=== PATIENT | female | born 1995 | race Caucasian/White ===

== ENCOUNTER 2022-07-10 13:56 | Emergency (ER) | payer OTHER, SELFPAY ==
[2022-07-10 14:03] VITALS: BP 129/67; PULSE 123; RESP 18; TEMP 37; O2SAT 99
--- NOTE | 2022-07-10 14:18 | ED.BACK ---
HPI - Back Pain/Injury General Chief Complaint: Back Pain/Injury Stated Complaint: lower Back pain Time Seen by Provider: 07/10/22 14:18 Source: patient, RN notes reviewed and old records reviewed Mode of arrival: ambulatory Limitations: no limitations History of Present Illness HPI Narrative: 26 year old female who presents to [facility] care with complaints of lower back pain which started yesterday when she was bending over to put 5 month old infant in a bouncer. Patient reports that she had sharp pain in her lower back at that time that has persisted which is aggravated by any movement. Patient reports that she has had previous episode of back pain of similar symptoms and area of pain. Patient reports that she has some tingling and numbness that go to her thighs at times. Patient reports that she has no bowel or bladder difficulty. Patient reports that her pain is along middle of lower back with no radiation of the pain into buttock or down legs. patient is and had some Flexeril from her previous episode of back pain and she did pump after taking the medication and supplemented infant with formula. MD elicited complaint: back pain Pertinent past history: prior back pain Onset (ago): day(s) Pain scale (0-10): 6 Quality: sharp Exacerbating factors: movement Work related injury: No Related Data Home Medications Medication Instructions Recorded Confirmed bupropion HCl 150 mg 24 hr tablet, 150 mg PO DAILY 07/10/22 07/10/22 extended release Allergies Allergy/AdvReac Type Severity Reaction Status Date / Time No Known Allergies Allergy Verified 07/10/22 14:15 Review of Systems Review of Systems: CONSTITUTIONAL: Denies fever, chills, or sweats. CARDIOVASCULAR: Denies chest pain, palpitations, or edema. RESPIRATORY: Denies cough or dyspnea. GASTROINTESTINAL: Denies abdominal pain, nausea, vomiting, or diarrhea. GENITOURINARY: Denies dysuria or hematuria. SKIN: Denies rash or itching. MUSCULOSKELETAL: Reports back pain lower mid back area Joint pain or myalgia. NEUROLOGIC: Denies headache, numbness, or weakness. All systems reviewed & are unremarkable except as noted in HPI and below PMFSH Past Medical History Medical History (Updated 07/10/22 @ 15:34 by Mayda England NP) Back pain Comments At time of signature, agree with nursing past medical, surgical, social and family history. There is no relevant family history pertinent to the presenting complaint Exam Narrative: GENERAL: Well-appearing, well-nourished, and in no acute distress. HEAD: Normocephalic, atraumatic. EYES: PERRLA and EOMI. NECK: Supple. No lymphadenopathy. CHEST: Clear to auscultation. No respiratory distress. SAO2 99% on room air HEART: Regular rate and rhythm. Distal pulses palpable and equal, cap refill <3 seconds ABDOMEN: Soft, nontender, nondistended, normal active bowel sounds, no palpable or pulsatile masses. No CVA tenderness MUSCULOSKELETAL: Normal range of motion and strength in all extremities; 5/5 strength with hip flexion and extension, dorsiflexion and extension, knee flexion and extension, plantar flexion and extension. Normal sensation in dermatomal distributions with sensitivity to light touch and pain. lower back midline back tenderness to palpation. No paraspinal tenderness. Transfers from lying to sitting to standing slowly and guarded with movement. SKIN: Warm, dry, no rash. No ecchymosis, erythema, open wounds to back. NEURO: No focal deficits. Alert and oriented x3. Reflexes intact. gait slow and deliberate PSYCH: Normal mood and affect Course Course Emergency Course: Patient is aware of diagnosis, understands and agrees to treatment plan. Anticipatory guidance given. Patient agrees to follow-up as directed and is aware of reasons to seek care at the emergency department. Portions of this record may have been created with voice recognition software Level of Care: Express Care Vi
== END 2022-07-10 14:40 | disposition home or self-care (01) ==
PROVIDERS: Emergency Provider Registered Nurse
DX: S39.012A Strain of muscle, fascia and tendon of lower back, initial encounter (principal); X50.9XXA Other and unspecified overexertion or strenuous movements or postures, initial encounter
CPT/HCPCS: 99213; G0463

== ENCOUNTER 2022-12-21 18:08 | Emergency (ER) | payer OTHER, SELFPAY ==
--- NOTE | ~2022-12-21 | XR_ITS ---
EXAMINATION: XR chest 2V Exam Date/Time: 12/21/2022 19:03 CDT HISTORY: COUGH X 12 DAYS. Comparison: None. RESULT: Lines, tubes, and devices: Cholecystectomy clips. Lungs and pleura: Clear. Cardiomediastinal silhouette: Normal. Other: No acute osseous or upper abdominal finding. IMPRESSION: No acute cardiopulmonary process. Reviewed, dictated and finalized at location K.
[2022-12-21 18:20] VITALS: BP 113/71; PULSE 87; RESP 20; TEMP 36.9; O2SAT 100
--- NOTE | 2022-12-21 18:45 | ED.URI ---
HPI - URI/Sore Throat General Chief Complaint: Upper Respiratory Infection Stated Complaint: Cough Source: patient and RN notes reviewed History of Present Illness HPI Narrative: 27 yo F presents to urgent care with complaints of cough x 12 days. Pt reports SOB with exertion. Reports a dry throat. Denies any chest pain, fevers, chills, or vomiting. Pt has been taking Mucinex and Dayquil at home. Related Data Home Medications Medication Instructions Recorded Confirmed semaglutide (weight loss) 1.7 1.7 mg subcut WEEKLY 12/21/22 12/21/22 mg/0.75 mL subcutaneous pen injector (Wegovy) Allergies Allergy/AdvReac Type Severity Reaction Status Date / Time No Known Allergies Allergy Verified 12/21/22 18:35 Review of Systems Review of Systems: CONSTITUTIONAL: Denies fever, chills, or sweats. EYES: Denies visual changes, redness, or discharge. ENT: Denies otalgia and sore throat CARDIOVASCULAR: Denies chest pain, palpitations, or edema. RESPIRATORY: + cough or dyspnea. GASTROINTESTINAL: Denies abdominal pain, nausea, vomiting, or diarrhea. GENITOURINARY: Denies dysuria or hematuria. SKIN: Denies rash or itching. MUSCULOSKELETAL: Denies back pain, joint pain, or myalgia. NEUROLOGIC: Denies headache, numbness, or weakness. Pertinent positives per HPI. PENDING SALE TO [facility] Past Medical History Medical History (Updated 12/21/22 @ 19:31 by Nupur Damian, BANANA ROOM CUTTER) Back pain Comments At the time of my signature, I reviewed and agree with the nursing past medical, surgical, social, and family history. There is no relevant family history pertinent to the patient complaint. Exam Narrative: GENERAL: This is a well-nourished, well-developed patient, in no apparent distress. HEAD: normocephalic, atraumatic. EYES: Sclera clear/white. Vision is grossly intact. EARS: External ears normal, auditory canals clear and without drainage, TMs normal without perforation. Hearing grossly intact. NOSE: External nose normal with no obvious nasal discharge, nares without redness, no rhinorrhea. THROAT: Mucous membranes moist, posterior pharynx clear. NECK: Neck supple, non-tender without lymphadenopathy, masses or thyromegaly. CARDIOVASCULAR: Regular rate and rhythm without murmurs, gallops, or rubs. RESPIRATORY: Rhonchi and slight wheezes heard on auscultation in lower bases SKIN: warm, intact with no suspicious lesions or rash, good texture and turgor. NEURO: awake, alert, and oriented to person, place and time. There were no obvious focal neurologic abnormalities. Course Course Level of Care: Express Care Visit Vital Signs Vital signs: Vital Signs Temperature 98.5 F 12/21/22 18:20 Pulse Rate 87 12/21/22 18:20 Respiratory Rate 20 12/21/22 18:20 Blood Pressure 113/71 12/21/22 18:20 Pulse Oximetry 100 12/21/22 18:20 Oxygen Delivery Room Air 12/21/22 18:20 Temperature 98.5 F 12/21/22 18:20 Pulse Rate 87 12/21/22 18:20 Respiratory Rate 20 12/21/22 18:20 Blood Pressure 113/71 12/21/22 18:20 Pulse Oximetry 100 12/21/22 18:20 Oxygen Delivery Room Air 12/21/22 18:20 At the time of my signature, I reviewed and agree with the nursing past medical, surgical, social, and family history. There is no relevant family history pertinent to the patient complaint. MDM - URI/Sore Throat MDM Narrative Medical decision making narrative: Take steroids as directed. May use the inhaler every 4-6 hours as needed for coughing. Increase fluids at home. Avoid any and all smoke. May use a humidifier in the bedroom. Increase your Vitamin C. Follow-up with personal physician in 2-5 days. Differential Diagnosis Differential diagnosis: Likely upper respiratory infection, sinusitis, viral infection and bronchitis Imaging Data Radiologist's impression: [facility] [address] [place] [address] XRay Report Signed Patient: Trisha Kramer :
== END 2022-12-21 19:35 | disposition home or self-care (01) ==
PROVIDERS: Emergency Provider Nurse Practitioner Family
DX: J40 Bronchitis, not specified as acute or chronic (principal)
CPT/HCPCS: 71046; 99213; G0463

== ENCOUNTER 2023-01-08 08:24 | Emergency (ER) | payer OTHER, SELFPAY ==
[2023-01-08 08:31] VITALS: BP 119/84; PULSE 103; RESP 16; TEMP 36.6; O2SAT 98
[2023-01-08 08:34] VITALS: BP 119/84; PULSE 103; RESP 16; TEMP 36.6; O2SAT 98
--- NOTE | 2023-01-08 08:45 | ED.URI ---
HPI - URI/Sore Throat General Chief Complaint: Upper Respiratory Infection Stated Complaint: Cough and Congestion Source: patient and RN notes reviewed History of Present Illness HPI Narrative: 27 yo F presents to urgent care with complaints of congestion, sinus pressure, and frontal GEIGER x 1 week. Pt has had a cough for several weeks and was seen here 2 weeks ago and dx with bronchitis. Pt had a negative CXR at that time and prescribed Albuterol and prednisone. Pt states her cough is still lingering but her biggest issue today is her congestion. Denies any fevers, chills, chest pain, N/V/D, ear pain, or sore throat. Pt is taking OTC medications without relief. Related Data Home Medications Medication Instructions Recorded Confirmed semaglutide (weight loss) 1.7 1.7 mg subcut WEEKLY 12/21/22 12/21/22 mg/0.75 mL subcutaneous pen injector (Wegovy) Allergies Allergy/AdvReac Type Severity Reaction Status Date / Time No Known Allergies Allergy Verified 12/21/22 18:35 Review of Systems Review of Systems: Pertinent positives and pertinent negatives per HPI. [facility] Past Medical History Medical History (Updated 01/08/23 @ 08:45 by Nupur Damian, RENT AND MISCELLANEOUS REMITTANCE CLERK) Back pain Comments At the time of my signature, I reviewed and agree with the nursing past medical, surgical, social, and family history. There is no relevant family history pertinent to the patient complaint. Exam Narrative: GENERAL: This is a well-nourished, well-developed patient, in no apparent distress. HEAD: normocephalic, atraumatic. EYES: Sclera clear/white. Vision is grossly intact. EARS: External ears normal, auditory canals clear and without drainage, TMs normal without perforation. Hearing grossly intact. NOSE: External nose normal with no obvious nasal discharge, nares without redness, no rhinorrhea. + congestion THROAT: Mucous membranes moist, posterior pharynx clear. NECK: Neck supple, non-tender without lymphadenopathy, masses or thyromegaly. CARDIOVASCULAR: Regular rate and rhythm without murmurs, gallops, or rubs. RESPIRATORY: Clear to auscultation. Breath sounds equal bilaterally. No wheezes, rales, or rhonchi. SKIN: warm, intact with no suspicious lesions or rash, good texture and turgor. NEURO: awake, alert, and oriented to person, place and time. There were no obvious focal neurologic abnormalities. Course Course Level of Care: Express Care Visit Vital Signs Vital signs: Vital Signs Temperature 98 F 01/08/23 08:31 Pulse Rate 103 H 01/08/23 08:31 Respiratory Rate 16 01/08/23 08:31 Blood Pressure 119/84 01/08/23 08:31 Pulse Oximetry 98 01/08/23 08:31 Oxygen Delivery Room Air 01/08/23 08:31 Temperature 97.4 F L 01/08/23 08:38 Pulse Rate 70 01/08/23 08:38 Respiratory Rate 20 01/08/23 08:38 Blood Pressure 104/49 L 01/08/23 08:38 Pulse Oximetry 98 01/08/23 08:38 Oxygen Delivery Room Air 01/08/23 08:38 Reviewed MDM - URI/Sore Throat MDM Narrative Medical decision making narrative: Go to the ER for any new or worsening symptoms. Avoid smoking/second-hand smoke. Continue to take Tylenol or Motrin for pain. Increase your Vitamin C intake. Use a humidifier or vaporizer at night. Take a probiotic daily while taking the antibiotic Take Medications as prescribed. Drink plenty of water. 8-10 glasses per day. Use flonase 2 times per day for 5 days then as needed Take mucinex 2 times per day and be sure to take with 8oz of water. Follow up with Primary provider if not getting better. Differential Diagnosis Differential diagnosis: Likely upper respiratory infection, sinusitis, viral infection and bronchitis Critical Care Time Critical Care Time Critical Care Time: No Discharge Plan Discharge Clinical Impression: Sinusitis Qualifiers: Sinusitis location: unspecified location Chronicity: acute Recurrence: not specified as recurrent Qualified Code(s): J01.90 - Acute sinusitis, u
== END 2023-01-08 08:51 | disposition home or self-care (01) ==
PROVIDERS: Emergency Provider Nurse Practitioner Family
DX: J01.90 Acute sinusitis, unspecified (principal)
CPT/HCPCS: 99213; G0463

== ENCOUNTER 2024-07-31 08:15 | Emergency (ER) | payer OTHER, SELFPAY ==
[2024-07-31 08:20] VITALS: BP 98/61; PULSE 92; RESP 14; TEMP 36.5; O2SAT 100
--- OUTSIDE RECORDS SUMMARY | 2024-07-31 08:20 | XMS_ITS | Encounter Summary ---
Author Organization [facility] Address [address] [place] [address] Care Team Providers Care Cone Worker Name Role Phone Mariah Eaton MD Primary Care Provider [phone] Encounter Details Date Type Department Care Team (Late st Contact Info) Description 04/14/2018 Lab Requisition [facility] [address] [place] [address] [place] [id number] [facility] [address] [place] [address] Encounter for pre-employment examination Social History Tobacco Use Types Packs/Day Years Used Date Smoking Tobacco: Never Assessed Comments Unknown Sex and Gender Information Value Date Recorded Sex Assigned at Not on file Legal Sex Female 1:17 PM CDT Gender Identity Not on file Sexual Orientation Not on file documented as of this encounter Plan of Treatment Not on file documented as of this encounter Procedures Procedure Name Priority Date/Time Associated Diagnosis Comments HEPATITIS B SURFACE AB, QUANT Routine 04/14/2018 1:10 PM ACCOUNT RELATIONSHIP MANAGER Encounter for pre-employment examination documented in this encounter Results * HEPATITIS B SURFACE AB, QUANT (04/14/2018 1:10 PM ACCOUNT RELATIONSHIP MANAGER) HEPATITIS B SURF AB,QN 12/30/2018 1:12 PM CDT [facility] Comment: Invalid result. This is a corrected result. Previous result was 18.3 mlU/mL on 04/14/2018 at 2011 ACCOUNT RELATIONSHIP MANAGER HEPATITIS B SURFACE AB INTERP 12/30/2018 1:12 PM CDT [facility] Comment: Invalid result. This is a corrected result. Previous result was Reactive on 04/14/2018 at 2012 ACCOUNT RELATIONSHIP MANAGER Blood Collection / Unknown 04/14/2018 1:10 PM ACCOUNT RELATIONSHIP MANAGER 04/14/2018 4:34 PM ACCOUNT RELATIONSHIP MANAGER Narrative [facility] - 12/30/2018 1:12 PM CDT Patient has immunity to Hepatitis B virus. This assay is used to determine immune status to Hepatitis B as greater than or equal to 10 mIU/mL as per CDC guidelines (MMWR:vol 55: RR-16, 2006). Doni Robertson MD CHEMISTRY ORDERABLES Edited Result - Final [facility]# [id number] [address] [place] [address] documented in this encounter Visit Diagnoses Diagnosis Encounter for pre-employment examination Health examination of defined subpopulation documented in this encounter Care Teams Cone Worker Relationship Specialty Start Date End Date Mariah Eaton MD PCP - General Family Practice 04/13/18 documented as of this encounter
--- OUTSIDE RECORDS SUMMARY | 2024-07-31 08:20 | XMS_ITS | Clinical Summary ---
Author Organization [facility] Address [address] [place] [address] Care Team Providers Care Pipe Installer Name Role Phone Mariah Eaton MD Primary Care Provider [phone] Allergies No known active allergies Medications Norlyda 0.35 mg Tablet TAKE 1 TABLET BY MOUTH DAILY AT THE SAME TIME OF THE DAY 07/12/2020 Active busPIRone (BUSPAR) 10 mg tablet 06/18/2020 Active Active Problems No known active problems Immunizations Immunization Administration Dates Next Due (ACTHIB/HIBERIX)(2 MOS-5 YRS /6 WKS-4 YRS) HAEMOPHILUS INFLUENZAE TYPE B VACCINE (HIB), PRP-T CONJUGATE, 4 DOSE, 0.5 ML IM 09/03/1994,03/04/1994,01/07/1994,11/07 (ADACEL/BOOSTRIX)(10 YR UP) TDAP VACCINE, 0.5ML, IM 11/19/2015,10/10/2004 (GARDASIL)(9-45 YRS) HUMAN PAPILLOMAVIRUS VACCINE, TYPES 6, 11, 16, 18, QUADRIVALENT (4VHPV), 3 DOSE, IM 10/29/2016,10/11/2007,01/04/2007 (INFANRIX)(6 WKS-6 YRS) DIPT HERIA, TETANUS TOXOIDS, AND ACCELLULAR PERTUSSIS VACCINE (DTAP), 0.5 ML IM 10/11/1997,09/03/1994,03/04/1994,01/07,1993 (IPOL)(6 WKS AND UP) POLIOVI ROMÁN VACCINE, INACTIVATED (IPV), 3 DOSE, SUBCUT OR IM 10/12/1995,09/03/1994,01/07/1994,11/07 (M-M-R II/PRIORIX)(12 MO UP) MEASLES, MUMPS AND RUBELLA VIRUS VACCINE, 0.5 ML IM/SUBCUT 10/11/1997,09/03/1994 Hepatitis A Vaccine 01/27/2006,04/09/2005 Hepatitis B Vaccine 03/04/1994,1993,1993 INFLUENZA VACCINE QUADRIVALE NT 6 MOS UP PF IM 12/10/2016,11/02/2014 Influenza Vaccine Tri Split 4+ Im 03/01/2013, Skin Test TB 08/14/2016,07/17/2016,11/19/2015 Social History Tobacco Use Types Packs/Day Years Used Date Smoking Tobacco: Never Assessed Comments Unknown Sex and Gender Information Value Date Recorded Sex Assigned at Not on file Legal Sex Female 1:17 PM CDT Gender Identity Not on file Sexual Orientation Not on file Last Filed Vital Signs Vital Sign Reading Time Taken Comments Blood Pressure 105/71 08/01/2020 8:15 AM CDT Pulse 97 08/01/2020 8:15 AM CDT Temperature 37.5 C (99.5 F) 08/01/2020 8:15 AM CDT Respiratory Rate 18 08/01/2020 8:15 AM CDT Oxygen Saturation 98% 08/01/2020 8:15 AM CDT Inhaled Oxygen Concentration - - Weight 92.1 kg (203 lb) 08/01/2020 8:15 AM CDT Height 167.6 cm (5' 6) 08/01/2020 8:15 AM CDT Body Mass Index 32.77 08/01/2020 8:15 AM CDT Plan of Treatment Health Maintenance Due Date Last Done Comments HPV/Cotest (21-29) 2014 CERVICAL CANCER SCREENING 08/29/2023 HPV/Cotest (30-65) 08/29/2023 PAP SMEAR 08/29/2023 INFLUENZA VACCINE (#1) 2023 , 12/10/2016, 11/02/2014, Additional history exists DTAP/TDAP/TD VACCINES (10 - Td or Tdap) 12/03/2031 12/02/2021, 07/20/2019, 11/19/2015, Additional history exists HEPATITIS B VACCINES Completed 03/04/1994, 1993, 1993 HPV VACCINES Completed 10/29/2016, 09/29, 01/04/2007 Insurance [facility] Care Teams Pipe Installer Relationship Specialty Start Date End Date Mariah Eaton MD PCP - General Family Practice 04/13/18
--- OUTSIDE RECORDS SUMMARY | 2024-07-31 08:20 | XMS_ITS | Clinical Summary ---
Author Organization [facility] Address [address] [place] [address] Care Team Providers Care Gravel Screener Name Role Phone Valeria Espana MD Primary Care Provider [phone] Allergies No known active allergies Medications * This document contains information received from the source organization and may not represent a complete record from that organization. rizatriptan (MAXALT) 5 mg tabletIndicatio ns:Migraine Take 1 tablet (5 mg total) by mouth once as needed for migraine May repeat in 2 hours if unresolved. Do not exceed 30 mg in 24 hours. 9 tablet 2 10/25/2023 Active semaglutide (WEGOVY) 1.7 mg/0.75 mL auto-injectorIn dications:Overw eight,BMI 22.0-22.9, adult Inject 0.75 mL (1.7 mg total) under the skin every 7 days 3 mL 5 05/31/2024 Active Qulipta 60 mg tablet TAKE 1 TABLET BY MOUTH DAILY 30 tablet 2 03/30/2024 Active meloxicam (MOBIC) 15 mg tabletIndicatio ns:Acute midline low back pain without sciatica Take 1 tablet (15 mg total) by mouth daily 30 tablet 04/26/2024 Active oeb-oijmsova-rf I02-ybwd no.226 [id number] mg tablet 01/31/2024 Active inulin (Fiber Gummies) 2 gram tablet,chewable Take 2 each by mouth 01/31/2024 Active cholecalciferol , vitamin D3, 2,000 unit tablet,chewable 01/31/2024 Act nnamdi valACYclovir (VALTREX) 1 gram tablet 02/09/2024 Active cyanocobalamin (Vitamin B-12) 1,000 mcg sublingual tabletIndicatio ns:Prevention of Vitamin B12 Deficiency Take 1 tablet (1,000 mcg total) by mouth daily 30 tablet 3 06/28/2024 10/27/19 25 Active Active Problems Problem Noted Date Diagnosed Date B12 deficiency 07/07/2024 Fatigue 07/07/2024 Chronic migraine without aur a without status migrainosus, not intractable 01/31/2024 Iron deficiency anemia, unspecified 11/10/2023 care following vaginal delivery 01/25 Overview (01/27/2022): # ID: Afebrile. No signs/symptoms of infection. COVID-19 vaccinated. # Heme: EBL 300 mL. Hemodynamically stable. # Rh negative: s/p Rhogam on 01/26 #CATA: continue PO FeSo4 # CV/Pulm: gHTN- diagnosed based on BPs >4 hours apart. CBC/CMP on admission WNL. Repeat labs pending. UPC not collected, patient diagnosed PP. Well controlled with no BP meds. Enrolled in BP monitoring. # GI/: Tolerating PO. Voiding spontaneously. # GDMA1: fasting glucose on PPD1 77, for 2 hour GTT at 6 week PP visit # Anxiety/depression: not currently on medications # Pain: Controlled with above regimen. Hx of gastric sleeve, avoid NSAIDs. # Post DVT prophylaxis: The patient has the following MAJOR risk factors none and the following MINOR risk factors BMI 30-39. SCDs ordered for VTE prophylaxis. # MOC: defer to PP visit # MOF: # Disposition: Desires discharge home today. Threatened labor, third trimester 2021 Supervision of other normal , antepartu m 07/11/2021 Overview (01/14/2022): Rh neg -Anxiety, Depression, ADHD, no meds -hx of gastric sleeve -Cold sores valtrex prn -Hx pseudotumor cerebri, gets yearly eye exam-negative w/ no sx.'s -anemia- Iron BID -GDMA, s/p diabetic education -36wk growth US scheduled for 01/26 [x] Initial BMI: 37.61 [x] Labs: Labs: Lab Results Component Value Date ABORH O Negative 07/04/2021 IDCOOMB Negative 07/04/2021 [id number] Nonreactive 07/11/2021 LABRPR Nonreactive 07/11/2021 RUBELIGG Reactive 07/11/2021 HEPBSAG Nonreactive 07/11/2021 [x] Genetic Screening: cffDNA-nml [x] Baby ASA:N/A [x] 1hr GCT at 24-28wks: 151, vomitted 3hr gtt, for 1 week of home testing [x] Tdap (27-36wks): 12/02/21 MJ [] Flu Shot:Denied 12/02/21 MJ [x] COVID vaccine: 03/07/20, 03/28/20, NO booster [x] Rhogam (if Rh neg): O neg (received Rhogam / for spotting) 12/02/21 MJ [x] GBS at 36 wks: GBS +, bacteruria [x] [] control method: [] 39 weeks discussion of IOL vs. Expectant management: [] Mode of delivery: [] For C/S bottle of CHG 4% and hand out provided @ 36wks Marc Henry @ pediatrics, Teaching: [x] 1st visit [x] 28-30 week [] 36 week Anxiety 04/03/2020 Attention deficit hyperactivity disorder (ADHD) 08/17/2017 Depression 08/17/2017 History of gastric surgery 08/17/2017 IIH (idiopathic intracranial hypertension) 04/08 Benign essential tremor 04/08/2017 Tremor 01/14/2012 Overview (06/05/2016): Tremor Resolved Problems Problem Noted Date Diagnosed Date Resolved Date care following vaginal delivery 09/04/2019 10/13/2019 Overview (09/05/2019): # ID: Afebrile. No signs/symptoms of infection. #COVID-19: Preadmission testing negative # Heme: EBL 300 mL. No symptoms acute blood loss anemia. # CV/Pulm: Gestational hypertension - Blood pressures well controlled with rare MR controlled on no meds. Asymptomatic, denies GEIGER/RUQ pain/vision changes. CBC/CMP/UPC wnl. # GI/: Tolerating PO. Voiding spontaneously. # Pain: Controlled with above regimen. No NSAIDs 2/2 hx gastric sleeve. # Post DVT prophylaxis: The patient has the following MAJOR risk factors none and the following MINOR risk factors BMI 30-39. SCDs ordered for VTE prophylaxis. # MOC: Progestin-only pills # MOF: # Disposition: Desires discharge home today #Rh neg: for rhogam workup pp. #Rubella NI: MMR ordered. #Hx of gastric sleeve: No NSAIDs pp. Encounter for elective induction of labor 09/03/2019 10/13/2019 Overview (09/03/2019): 1. Elective Induction of Labor: Admit to L&D. Consents signed and placed in chart. Send CBC/T&S. Induction of labor with FB+ oxytocin. 2. FWB: Continuous monitoring. Reactive NST 3. ID: HIV negative. GBS negative. Membrane Status: intact 4. Indications for UDS: none 5. MOF: Plans to breastfeed. 6. MOC: Plans to use POPs for contraception. 7. Pain management: Desires epidural when painfully laexa. 8. Post DVT prophylaxis: VTE prophylaxis: The patient has the following MAJOR risk factors none and the following MINOR risk factors BMI 30-39 and none. SCDs to be ordered for VTE prophylaxis. 9. Pseudotumor Cerebri: Asymptomatic. Gets yearly eye exams. Takes Diamox PRN. No nifedipine and to avoid hydralazine if BPs require spotting during labor. 10. Hx Gastric Sleeve: Hx 80lb weight loss. No NSAIDs . 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 Not currently taking valtrex suppression. BLE negative. Supervision of other normal , antepartum 01/04/2019 10/13/2019 Overview (08/22/2019): - RH- Passive Anti-D (had rhogam @ 5wks of ) -hx of gastric sleeve -Cold sores valtrex prn -Hx pseudotumor cerebri, gets yearly eye exam and negative, no sx -Anemia: Fe BID recommended - IOL 09/03/19 @ 1999, pt aware! covid testing ordered - EFW @ 32wks 85% [x] Labs: 1st trimester completed [x] Genetic Screening: nml flk [x] Baby ASA:n/a [x] 1hr GCT at 24-28wks: 137 [x] Tdap (27-36wks): 07/20/19-hr [] Flu Shot: [x] Rhogam (if Rh neg): O- 07/20/19-hr [x] GBS at 36 wks: Negative [x] [x] control method: undecided, list provided [x] 39 weeks discussion of IOL vs. Expectant management: [x] Mode of delivery:VD , Girl Dr. Jag Mott @ pediatrics Encounters Date Type Department Care Team Description 06/29/2024 7:15 PM CDT Lab [facility] Advanced Medicine Advanced Medicine ([facility]) [address] [place] [phone] Fatigue, unspecified type 06/28/2024 9:00 AM CDT Office Visit [facility] [address] [place] [phone] Christina Akins MD Iron deficiency anemia, unspecified iron deficiency anemia type (Primary Dx); History of gastric surgery; B12 deficiency; Fatigue, unspecified type 06/28/2024 8:30 AM CDT Lab [facility] - Lab Collection [facility] [address] [place] [address] Iron deficiency anemia, unspecified iron deficiency anemia type 06/28/2024 Orders Only [facility] [address] [place] [address] 6 [place] [phone] Christina Akins MD 06/28/2024 Results Follow-Up [facility] [address] [place] [address] 6 [place] [phone] Christina Akins MD Ferritin, Iron profile w/ IBC, CBC with auto differential, Additional followed-up results: 2 from Last 3 Months Immunizations Immunization Administration Dates Next Due DTaP 10/11/1997, 5,03/04/1994,01/07,1993 Flucelvax Influenza Quad 12/17/2020 HPV, Quadrivalent 10/29/2016,10/11/2007,01/05/20 07 Hep A, Adult 01/27/2006,04/09/2005 Hep B Vaccine 03/04/1994,1993,1993 Hib (PRP-T) 09/03/1994, 5,01/07/1994,11/07 IPV 10/12/1995, 5,01/07/1994,11/07 Influenza, Quadrivalent, Spl it, Preservative Free, Intramuscular 12/10/2016,11/02/2014 Influenza, Trivalent, Cell Culture-based MDCK, Preservative Free, Antibiotic Free, Intramuscular 12/14/2023 Influenza, Trivalent, IM (MDV) 03/01/2013,2011 MMR 09/05/2019(Deferred: No longer needed),10/11/1997,09/03/1994 PPD TEST, UNSPECIFIED 08/14/2016,07/17/2016,10/31 [employer] Sars-Cov-2 Bivalent V accination (12+ YRS) 01/30/2022 Tdap 12/02/2021, 0,11/19/2015,10/10 Surgical History Surgery Date Site/Laterality Comments BARIATRIC SURGERY 03/01/2015 - 02/29/2016 Gastric sleeve APPENDECTOMY 03/01/2009 - 02/28/2010 CHOLECYSTECTOMY 03/01/2015 - 02/29/2016 TONSILLECTOMY 03/01/2010 - 02/28/2011 Medical History Medical History Date Comments Pseudotumor cerebri 2013 LP/MRI @U , weight loss surgery Benign essential tremor [address] Adelita hughes Adhd Migraine due to pseudotum or Anxiety Asthma childhood only Anemia affecting Vitamin D deficiency Iron deficiency anemia Family History Medical History Relation Name Comments Hyperlipidemia Father Hypertension Father Diabetes Maternal Grandfather Hypertension Maternal Grandfather Diabetes Maternal Grandmother Hypertension Maternal Grandmother Anxiety disorder Mother Depression Mother Hyperlipidemia Mother Hypertension Mother Rheum arthritis Mother Diabetes Paternal Grandmother Hypertension Paternal Grandmother Kidney disease Paternal Grandmother Cancer Sister 1 brain Anxiety disorder Sister 2 Crohn's disease Sister 2 Depression Sister 2 Breast cancer Neg Hx Colon cancer Neg Hx Deep vein thrombosis Neg Hx Ovarian cancer Neg Hx Uterine cancer Neg Hx Relation Name Status Comments Father Maternal Grandfather Maternal Grandmother Mother Paternal Grandmother Sister 1 Sister 2 Social History Tobacco Use Types Packs/Day Years Used Date Smoking Tobacco: Never Smokeless Tobacco: Never Tobacco Cessation:Counseling Given: Not Answered Alcohol Use Standard Drinks/Week Comments Yes 0 (1 standard drink = 0.6 oz pur e alcohol) socially Social Connection and Isolat ion Panel [NHANES] Answer Date Recorded In a typical week, how many times do you talk on the phone with family, friends, or neighbors? More than three times a week 01/26/2022 How often do you get togethe r with friends or relatives? Three times a week 01/26/2022 How often do you attend chur or buddhist services? Never 01/26/2022 Do you belong to any clubs o r organizations such as mu-ism groups, unions, fraternal or athletic groups, or school groups? No 01/26/2022 How often do you attend meet ings of the clubs or organizations you belong to? Never 01/26/2022 Are you , , di vorced, , never , or living with a partner? 01/26/2022 AUDIT-C Answer Date Recorded Q1: How often do you have a drink containing alcohol? Never 01/23/2022 Q2: How many drinks containi ng alcohol do you have on a typical day when you are drinking? Patient does not drink Q3: How often do you have si x or more drinks on one occasion? Never 01/23/2022 Overall Financial Resource Strain (CARDIA) Answe r Date Recorded How hard is it for you to pa y for the very basics like food, housing, medical care, and heating? Not hard at all 01/26/2022 PHQ-2 Answer Date Recorded PHQ-2 Total Score (If total score is 3 or more points, staff should administer the PHQ-9) 0 08/13/2020 Hunger Vital Sign Answer Date Recorded Within the past 12 months, y ou worried that your food would run out before you got the money to buy more. Never true 01/27/20 22 Within the past 12 months, t he food you bought just didn't last and you didn't have money to get more. Never true 01/26/2022 PRAPARE - Transportation Answer Date Re corded In the past 12 months, has l ack of transportation kept you from medical appointments or from getting medications? No 12/31 In the past 12 months, has l ack of transportation kept you from meetings, work, or from getting things needed for daily living? No 01/26/2022 Housing Stability Vital Sign Answer Gerardo e Recorded In the last 12 months, was t here a time when you were not able to pay the mortgage or rent on time? No 01/26/2022 In the last 12 months, how many places have you lived? 0 01/26/2022 In the last 12 months, was t here a time when you did not have a steady place to sleep or slept in a usp (including now)? No 01/26/2022 [place] Depression Scale Answer Date Recorded [place] Depression Scale Total 1 03/12/2022 The thought of harming myself has occurred to me . Never 03/12/2022 Comments Unknown Sex and Gender Information Value Date Recorded Sex Assigned at Not on file Legal Sex Female 2:49 PM SCIENTIST Gender Identity Not on file Sexual Orientation Straight 07/05/2018 9: 28 AM CDT Obstetrics History Para Term AB IAB SAB Ectopic Multiple Livin g Live Births 3 2 1 1 1 0 1 0 0 2 2 Date Outcome GA Total Labor Labor/2nd/3rd Weight Sex Type Anes PTL Princess A1 A5 Name Clin 2019 SAB 020 Term 39w 2d 0h 36m 0h 32m/0h 04m 3.325 kg (7 lb 5.3 oz) F Vag-S pont Epidur al N Livin g 8 9 ALIYA SON,G GENIE gama, Romeo mcknight MD Complications:None Delivery Location:[facility] ([facility] 58LD) 022 36w 3d 0h 06m 0h 03m/0h 03m 3.125 kg (6 lb 14.2 oz) M Vag-S pont Epidur al Y Livin g 8 9 ALIYA SON,B CHRIS ACOSTA gama, Romeo mcknight MD Complications:None Delivery Location:[facility] ([facility] 58LD) Comments 2020: of baby girl named Allison (09/03, 0715, [place]) 2021: ES- @36.2 w/ PTL of baby boy Philip (Jim) Last Filed Vital Signs Vital Sign Reading Time Taken Comments Blood Pressure 93/62 06/28/2024 8:42 AM CDT Pulse 84 06/28/2024 8:42 AM CDT Temperature 36.3 C (97.3 F) 06/28/2024 8:42 AM CDT Respiratory Rate 18 06/28/2024 8:42 AM CDT Oxygen Saturation 100% 06/28/2024 8:42 AM CDT Inhaled Oxygen Concentration - - Weight 62.1 kg (137 lb) 06/28/2024 8:42 AM CDT Height 165.1 cm (5' 5) 06/28/2024 8:42 AM CDT Body Mass Index 22.8 06/28/2024 8:42 AM CDT Plan of Treatment Health Maintenance Due Date Last Done Comments Varicella Vaccines (1 of 2 - 13+ 2-dose series) 2006 Regular Well Visit/Exam 18-64 08/13/2021 08/13/2020, 01/18/2018, 10/29/2016 Cervical Cancer Screening 03/12/2023 03/12/2022, Depression Screening 03/12/2023 03/12/2022, 08/14/19 21 Covid-19 Vaccine ( season) 2023 01/30/2022, 03/28/2020, 03/07/2020 DTaP/Tdap/Td Vaccine (10 - Td or Tdap) 12/03/2031 12/02/2021, 07/20/2019, 11/19/2015, Additional history exists Hepatitis B Screening Completed 10/11/1997 , 03/04/1994, 1993, Additional history exists HPV Vaccines Completed 10/29/2016, 09/29, 01/14/2007, Additional history exists Hepatitis C Screening Completed 07/11/2021 Influenza Vaccine Completed 12/14/2023, , 12/10/2016, Additional history exists Pneumococcal vaccine <65 Aged Out No longer eligible based on patient's age to complete this topic Procedures Procedure Name Priority Date/Time Associated Diagnosis Comments VITAMIN D 25 HYDROXY Routine 06/29/2024 4:23 PM CDT Fatigue, unspecified type VITAMIN B12 Routine 06/28/2024 8:20 AM CDT Iron deficiency anemia, unspecified iron deficiency anemia type DIFFERENTIAL AUTO Routine 06/28/2024 8:2 0 AM CDT Iron deficiency anemia, unspecified iron deficiency anemia type CBC WITH AUTO DIFFERENTIAL Routine 06/28/2024 8:20 AM CDT Iron deficiency anemia, unspecified iron deficiency anemia type IRON PROFILE W/ IBC Routine 06/28/2024 8 :20 AM CDT Iron deficiency anemia, unspecified iron deficiency anemia type FERRITIN Routine 06/28/2024 8:20 AM CDT Iron deficiency anemia, unspecified iron deficiency anemia type PAP WITH REFLEX TO HIGH RISK HPV Routine 03/12/2022 1:46 PM SCIENTIST care following vaginal delivery HEPATITIS C ANTIBODY Routine 07/11/2021 9:00 AM CDT Supervision of other normal , antepartum from Last 3 Months or Most Recently Relevant to Health Maintenance Results * (ABNORMAL) Vitamin D 25 hydroxy (06/29/2024 4:23 PM CDT) Vitamin D 25-OH 25(L) 30 - 80 ng/mL Blood 06/29/2024 4:23 PM CDT 06/29/2024 4:49 PM CDT us Valeria Espana MD LAB BLOOD ORDERABLES Final Resu lt [facility] Department [place] [address] * Differential, auto (06/28/2024 8:20 AM CDT) Neutrophil abs 1.99 1.50 - 6.50 K/cumm Comment:Testing performed by : [facility]e Lab, [address] [place] [phone] Lymphocyte abs 1.71 0.80 - 3.30 K/cumm [facility] Comment:Testing performed by : [facility], [address] [place] [phone] Monocyte abs 0.28 0.20 - 0.80 K/cumm [facility] Comment:Testing performed by : [facility], [address] [place] [address] Eosinophil abs 0.08 0.00 - 0.50 K/cumm [facility] Comment:Testing performed by : [facility], [address] [place] [address] Basophil abs 0.05 0.00 - 0.10 K/cumm [facility] Comment:Testing performed by : [facility], [address] [place] [phone] Neutrophil pct 48.6 % [facility] Comment: Interpretive Data Percent cell count reference ranges are not reported, since discordance with absolute values may lead to misinterpretation of CBC data. Current Interpretive Data was last revised on 2017. Testing performed by: [facility], [address] [place] [phone] Lymphocyte pct 41.6 % [facility] Comment: Interpretive Data Percent cell count reference ranges are not reported, since discordance with absolute values may lead to misinterpretation of CBC data. Current Interpretive Data was last revised on 2017. Testing performed by: [facility], [address] [place] [phone] Monocyte pct 6.9 % [facility] Comment: Interpretive Data Percent cell count reference ranges are not reported, since discordance with absolute values may lead to misinterpretation of CBC data. Current Interpretive Data was last revised on 2017. Testing performed by: [facility], [address] [place] [phone] Eosinophil pct 1.8 % CERREZA [facility] Comment: Interpretive Data Percent cell count reference ranges are not reported, since discordance with absolute values may lead to misinterpretation of CBC data. Current Interpretive Data was last revised on 2017. Testing performed by: [facility], [address] [place] [phone] Basophil pct 1.1 % ILANA [facility] Comment: Interpretive Data Percent cell count reference ranges are not reported, since discordance with absolute values may lead to misinterpretation of CBC data. Current Interpretive Data was last revised on 2017. Testing performed by: [facility], [address] [place] [phone] Blood 06/28/2024 8:20 AM CDT 06/28/2024 8:35 AM CDT Christina Gambino MD LAB BLOOD ORDERABLES Martha l Result [facility] Department [place] [address] * Iron profile w/ IBC (06/28/2024 8:20 AM CDT) Pathologist [facility] Iron 77 35 - 145 mcg/dL TIBC 283 250 - 400 mcg/dL [facility] Transferrin saturation 27 20 - 50 % [facility] Blood 06/28/2024 8:20 AM CDT 06/28/2024 8:46 AM CDT Christina Gambino MD LAB BLOOD ORDERABLES Martha l Result [facility] [place] [address] * CBC with auto differential (06/28/2024 8:20 AM CDT) Pathologist [facility] WBC 4.10 3.80 - 9.90 K/cumm Comment:Testing performed by : [facility]e [facility], [address] [place] [address] Hgb 12.9 11.9 - 15.5 g/dL CERNER [facility]J Comment:Testing performed by : [facility]e Lab, [address] [place] [address] Hct 38.3 35.6 - 45.5 % CERNER BJ Comment:Testing performed by : [facility]e [facility], [address] [place], [place] [phone] Plt 224 150 - 400 K/cumm CERNER BJ Comment:Testing performed by : [facility], [address] [place] [address] MPV 8.7 6.8 - 10.4 fL CERNER BJ Comment:Testing performed by : [facility], [address] [place], [place] [phone] RBC 4.35 3.90 - 5.20 M/cumm CERNER BJ Comment:Testing performed by : [facility], [address] [place] [address] MCV 88.2 81.3 - 96.4 fL CERNER BJ Comment:Testing performed by : [facility], [address] [place], [place] [phone] MCH 29.7 27.1 - 33.3 pg CERNER BJ Comment:Testing performed by : [facility], [address] [place] [address] MCHC 33.7 32.3 - 35.7 g/dL CERNER BJ Comment:Testing performed by : [facility], [address] [place] [address] RDW CV 13.0 11.1 - 14.9 % CERNER BJ Comment:Testing performed by : [facility], [address] [place] [address] NRBC abs 0.00 0.00 - 0.01 K/cumm CERNER BJ Comment:Testing performed by : [facility], [address] [place] [address] Blood 06/28/2024 8:20 AM CDT 06/28/2024 8:35 AM CDT Christina Gambino MD LAB BLOOD ORDERABLES Martha l Result Performing Organization Address [facility] de Phone Number [facility] Department [place] [address] * Ferritin (06/28/2024 8:20 AM CDT) Ferritin 79 13 - 150 ng/mL Blood 06/28/2024 8:20 AM CDT 06/28/2024 8:46 AM CDT Christina Gambino MD LAB BLOOD ORDERABLES Martha l Result Performing Organization Address [facility] de Phone Number [facility] Department [place] [address] * Vitamin B12 (06/28/2024 8:20 AM CDT) Vitamin B12 396 230 - 1,250 pg/mL Blood 06/28/2024 8:20 AM CDT 06/28/2024 10:45 AM CDT Christina Gambino MD LAB BLOOD ORDERABLES Martha l Result Performing Organization Address [facility] de Phone Number [facility] [place] [address] * Pap with reflex to High Risk HPV (03/12/2022 1:46 PM SCIENTIST) Thin prep (Pap test) 03/12/2022 1:46 PM SCIENTIST 03/12/2022 3:29 PM SCIENTIST Narrative PATHOLOGY [facility] - 03/23/2022 5:00 PM SCIENTIST EPIC results best viewed via link to PDF [facility] Bridget Aguilar [facility] [place] [address] Note to Patients: This report may contain a detailed description of human tissue sent by a health care provider to the laboratory for pathologic evaluation. The content of this report is essential for diagnosis and may provide important critical findings. This information may be unfamiliar to patients to review without a medical professional present. It is advised that the patient review this report in the presence of a health care provider who can answer questions and explain the details. CYTOPATHOLOGY REPORT FINAL Patient Name: YANN SAINI Gender: F : 1995 (Age: 26) Address: [address] [place] [address] Hospital #: [id number] Service: UNKNOWN Location: Patient Type: [facility] SPECIMEN Taken: 03/12/2022 Received: 03/12/2022 Accessioned: 03/12/2022 Reported: 03/23/2022 Physician(s): Jacqueline Lim M.D. FINAL INTERPRETATION SOURCE OF SPECIMEN: Liquid based Thin Prep pap with Reflex HPV STATEMENT OF ADEQUACY: - Satisfactory for evaluation - Endocervical cells/transformation zone sample present GENERAL CATEGORY: - Negative for squamous intraepithelial lesion or malignancy lwl/03/23/2022 17:00 MAG Ding MS(ASCP)POOJA Report Electronically Reviewed and Signed Out By MAG Ding MS(ASCP)POOJA 03/23/2022 17:00:43 Cervicovaginal Cytology (Pap Test) Disclaimer: The Pap test is a screening test used to detect cervical cancer and its precursors; it is not a diagnostic procedure. False negative and false positive results do occur. Pap test results should be interpreted in the context of pertinent clinical information and biopsy results as indicated. CMS Clinical Laboratory Improvement Amendments (CLIA) mandate that cytologic and histologic results be correlated for laboratory quality manager & improvement standards. FOR ALL HIGH-GRADE CASES we request submission of follow-up histological material and/or reports that have not been previously provided so that we may fulfill said required standards. Gross Description A. Liquid based Thin Prep pap with Reflex HPV: Cervical/vaginal - Screening ThinPrep Clinical Diagnosis and History Last Menstrual Period: None Contraceptive History: No The patient is a 26 year old woman with last pap 2019 normal. Report Images and scanned documents, if included only viewable in PDF version The performance characteristics of some immunohistochemical stains, in-situ hybridization and fluorescence in-situ hybridization tests and immunophenotyping by flow cytometry cited in this report (if any) were determined by the Surgical Pathology Department at [facility] as part of an ongoing quality control engineer program and in compliance with federally mandated regulations drawn from the Clinical Laboratory Improvement Act of 1988 (CLIA '88). Some of these tests rely on the use of analyte specific reagents and are subject to specific labeling requirements by the US Food and Drug Administration. Such diagnostic tests may only be performed in a facility that is certified by the Department of Health and Human Services as a high complexity laboratory under CLIA '88. The FDA has determined that such clearance or approval is not necessary. This test is used for clinical purposes. It should not be regarded as investigational or for research. Nevertheless, federal rules concerning the medical use of analyte specific reagents require that the following disclaimer be attached to the report: This test was developed and its performance characteristics determined by the Surgical Pathology Department of [facility]. It has not been cleared or approved by the U. S. Food and Drug Administration. Jacqueline Lim NP LAB CYTOLOGY ORDERABLES Fi nal Result PATHOLOGY [facility] 3rd Floor [place], [place] [phone] * Hepatitis C antibody (07/11/2021 9:00 AM CDT) Hep C Ab Nonreactive Nonreactive [facility] Comment:Antibodies to HCV no t detected. Does NOT exclude the possibility of recent exposure to HCV. Blood 07/11/2021 9:00 AM CDT 07/11/2021 9:55 AM CDT Noy Ball MD LAB MICROBIOLOGY - GENERA L ORDERABLES Edited Result - Final [facility] Department [place] [address] from Last 3 Months or Most Recently Relevant to Health Maintenance Insurance [facility] CHOICE PLUS [facility] HMO/PPO Address: [address] [address] [place] [address] [facility] EM[employer]O[facility]ES [facility] HMO/PPO Address: [address] [address] [place] [address] [phone] [place] [address] FOR[facility]LY [facility] ACCESS [facility] [employer]O[facility]ES [facility] HMO/PPO Address: [place] [address] [facility] [employer] [facility] HMO/PPO Address: [place] [address] Advance Directives For more information, please contact: [phone] * Full Code (Latest Code Status on File) Date Activated Date Inactivated Comments 01/25/2022 2:52 AM 01/27/2022 5:17 PM * Full Code Date Activated Date Inactivated Comments 01/24/2022 7:44 PM 01/25/2022 2:52 AM * Full Code Date Activated Date Inactivated Comments 01/23/2022 11:28 PM 01/24/2022 7:44 PM Full CPR in case of cardiopulmonary arrest * Full Code Date Activated Date Inactivated Comments 09/04/2019 8:06 AM 09/05/2019 7:07 PM * Full Code Date Activated Date Inactivated Comments 09/04/2019 7:56 AM 09/04/2019 8:01 AM Care Teams Gravel Screener Relationship Specialty Start Date End Date Valeria Espana MD [address] [facility] [address] [place] [address] PCP - General Internal Medicine 08/13/20
--- OUTSIDE RECORDS SUMMARY | 2024-07-31 08:20 | XMS_ITS | Referral Summary ---
Author Organization [facility] Address [address] [place] [address] Care Team Providers Care Child Care Center Administrator Name Role Phone Valeria Espana MD Primary Care Provider [phone] Encounters Date Type Department Care Team Description 06/29/2024 7:15 PM CDT Lab [facility] ([facility]) [address] [place] [phone] Fatigue, unspecified type 06/28/2024 Orders Only [facility] Hematology [address] [place] [phone] Christina Akins MD 06/28/2024 Results Follow-Up [facility]emat[facility] [address] [place] [phone] Christina Akins MD Ferritin, Iron profile w/ IBC, CBC with auto differential, Additional followed-up results: 2 06/28/2024 8:[address] [facility] - Lab Collection [address] [place] [id number] Iron deficiency anemia, unspecified iron deficiency anemia type 06/28/2024 9:00 AM CDT Office Visit [facility] Hematology [address] [place] [phone] Christina Akins MD Iron deficiency anemia, unspecified iron deficiency anemia type (Primary Dx); History of gastric surgery; B12 deficiency; Fatigue, unspecified type from Last 3 Months Allergies No known active allergies Medications * [...] by mouth daily 30 tablet 04/26/2024 Active [id number] no.226 [phone] mg tablet 01/31/2024 Active inulin (Fiber Gummies) [...] ABORH O Negative 07/04/2021 IDCOOMB Negative 07/04/2021 [id number] Nonreactive 07/11/2021 LABRPR Nonreactive 07/11/2021 RUBELIGG Reactive 07/11/2021 HEPBSAG Nonreactive 07/11/2021 [x] Genetic Screening: cffDNA-nml [x] Baby ASA:N/A [x] 1hr GCT at 24-28wks: 151, vomitted 3hr gtt, for 1 week of home testing [x] Tdap (27-36wks): 12/02/21 MJ [] Flu Shot:Denied 12/02/21 MJ [x] COVID vaccine: 03/07/20, 03/28/20, NO booster [x] Rhogam (if Rh neg): O neg (received Rhogam /6 for spotting) 12/02/21 MJ [x] GBS at [...] 7. Pain management: Desires epidural when painfully alexa. 8. Post DVT prophylaxis: VTE prophylaxis: The [...] Fe BID recommended - IOL 09/03/19 @ 2000, pt aware! covid testing ordered - EFW @ 32wks 85% [x] Labs: 1st trimester completed [x] Genetic Screening: nml flk [x] Baby ASA:n/a [x] 1hr GCT at 24-28wks: 137 [x] Tdap (27-36wks): 20-hr [] Flu Shot: [x] Rhogam (if Rh neg): O- 07/20/19-hr [x] GBS at 36 wks: Negative [x] [x] control method: undecided, list provided [x] 39 weeks discussion of IOL vs. Expectant management: [x] Mode of delivery:VD , Girl Dr. Jag Mott @ pediatrics Immunizations Immunization Administration Dates Next Due DTaP [...] No longer needed),10/11/1997,09/03/1994 PPD TEST, UNSPECIFIED 08/14/2016,07/17/2016,10/31 Pfizer Sars-Cov-2 Bivalent V accination (12+ YRS) 01/30/2022 Tdap 12/02/2021, 0,11/19/2015,10/10 Social History Tobacco Use Types Packs/Day Years [...] How often do you attend chur or tenriism services? Never 01/26/2022 Do you belong to any clubs o r organizations such as lutheran groups, unions, fraternal or athletic groups, or [...] place to sleep or slept in a senior living (including now)? No 01/26/2022 [place] Depression Scale Answer Date Recorded [place] Depression Scale Total 1 03/12/2022 The thought of harming myself has occurred to me . Never 03/12/2022 Comments Unknown Sex and Gender Information Value Date Recorded Sex Assigned at Not on file Legal Sex Female 2:49 PM CENTRAL SUPPLY TECHNICIAN Gender Identity Not on file Sexual Orientation Straight 07/05/2018 9: 28 AM CDT Last Filed Vital Signs Vital Sign Reading [...] 06/28/2024 8:42 AM CDT Plan of Treatment Not on file Procedures Procedure Name Priority Date/Time Associated Diagnosis [...] HIGH RISK HPV Routine 03/12/2022 1:46 PM CENTRAL SUPPLY TECHNICIAN care following vaginal delivery HEPATITIS C ANTIBODY Routine 07/11/2021 9:00 AM CDT Supervision of other normal , antepartum from Last 3 Months or Most Recently Relevant to Health Maintenance Results * (ABNORMAL) Vitamin D 25 hydroxy (06/29/2024 4:23 PM CDT) Pathologist [facility] Vitamin D 25-OH 25(L) 30 - 80 ng/mL Blood 06/29/2024 4:23 PM CDT 06/29/2024 4:49 PM CDT us Valeria Espana MD LAB BLOOD ORDERABLES Final Resu lt [facility] Department [place] [address] * Differential, auto (06/28/2024 8:20 AM CDT) Pathologist [facility] Neutrophil abs 1.99 1.50 - 6.50 K/cumm Comment:Testing performed by : [facility] Heme [facility], [address] [place] [phone] Lymphocyte abs 1.71 0.80 - 3.30 K/cumm CERREZA [facility] Comment:Testing performed by : [facility], [address] [place] [phone] Monocyte abs 0.28 0.20 - 0.80 K/cumm ILANA BJ Comment:Testing performed by : [facility], [address] [place] [phone] Eosinophil abs 0.08 0.00 - 0.50 K/cumm CERREZA BJ Comment:Testing performed by : [facility], [address] [place] [phone] Basophil abs 0.05 0.00 - 0.10 K/cumm CERREZA BJ Comment:Testing performed by : [facility], [address] [place] [phone] Neutrophil pct 48.6 % CERREZA ALVAREZ Comment: Interpretive Data Percent cell count reference ranges are not reported, since discordance with absolute values may lead to misinterpretation of CBC data. Current Interpretive Data was last revised on 2017. Testing performed by: [facility], [address] [place], [place] [phone] Lymphocyte pct 41.6 % CERNER BJ Comment: Interpretive Data Percent cell count reference ranges are not reported, since discordance with absolute values may lead to misinterpretation of CBC data. Current Interpretive Data was last revised on 2017. Testing performed by: [facility], [address] [place] [phone] Monocyte pct 6.9 % CERNER BJ Comment: Interpretive Data Percent cell count reference ranges are not reported, since discordance with absolute values may lead to misinterpretation of CBC data. Current Interpretive Data was last revised on 2017. Testing performed by: [facility], [address] [place] [address] Eosinophil pct 1.8 % CERNER [facility] Comment: Interpretive Data Percent cell count reference ranges are not reported, since discordance with absolute values may lead to misinterpretation of CBC data. Current Interpretive Data was last revised on 2017. Testing performed by: [facility], [address] [place], [place] [phone] Basophil pct 1.1 % CERNER BJ Comment: Interpretive Data Percent cell count reference ranges are not reported, since discordance with absolute values may lead to misinterpretation of CBC data. Current Interpretive Data was last revised on 2017. Testing performed by: [facility], [address] [place] [phone] Blood 06/28/2024 8:20 AM CDT 06/28/2024 8:35 AM CDT us Christina Gambino MD LAB BLOOD ORDERABLES Martha l Result [facility] Department [place] [address] * Iron profile w/ IBC (06/28/2024 8:20 AM CDT) Iron 77 35 - 145 mcg/dL TIBC 283 250 - 400 mcg/dL ILANA [facility] Transferrin saturation 27 20 - 50 % ILANA ALVAREZ Blood 06/28/2024 8:20 AM CDT 06/28/2024 8:46 AM CDT us Christina Gambino MD LAB BLOOD ORDERABLES Martha szymanski Result ILANA [facility] Department [place] [address] * CBC with auto differential (06/28/2024 8:20 AM CDT) WBC 4.10 3.80 - 9.90 K/cumm Comment:Testing performed by : [facility], [address] [place] [address] Hgb 12.9 11.9 - 15.5 g/dL CERREZA BJ Comment:Testing performed by : [facility], [address] [place] [address] Hct 38.3 35.6 - 45.5 % CERREZA BJ Comment:Testing performed by : [facility], [address] [place] [address] Plt 224 150 - 400 K/cumm CERREZA BJ Comment:Testing performed by : [facility], [address] [place] [address] MPV 8.7 6.8 - 10.4 fL CERREZA BJ Comment:Testing performed by : [facility], [address] [place] [address] RBC 4.35 3.90 - 5.20 M/cumm CERREZA BJ Comment:Testing performed by : [facility], [address] [place] [address] MCV 88.2 81.3 - 96.4 fL CERREZA BJ Comment:Testing performed by : [facility], [address] [place], [place] [phone] MCH 29.7 27.1 - 33.3 pg CERREZA [facility] Comment:Testing performed by : [facility], [address] [place], [place] [phone] MCHC 33.7 32.3 - 35.7 g/dL CERREZA [facility] Comment:Testing performed by : [facility], [address] [place], [place] [phone] RDW CV 13.0 11.1 - 14.9 % CERREZA [facility] Comment:Testing performed by : [facility], [address] [place], [place] [phone] NRBC abs 0.00 0.00 - 0.01 K/cumm CERREZA [facility] Comment:Testing performed by : [facility], [address] [place], [place] [phone] Blood 06/28/2024 8:20 AM CDT 06/28/2024 8:35 AM CDT Christina Gambino MD LAB BLOOD ORDERABLES Martha l Result Performing Organization Address City/[facility] Co de Phone Number [facility] Department [place] [address] * Ferritin (06/28/2024 8:20 AM CDT) Ferritin 79 13 - 150 ng/mL Blood 06/28/2024 8:20 AM CDT 06/28/2024 8:46 AM CDT Christina Gambino MD LAB BLOOD ORDERABLES Martha l Result Performing Organization Address City/[facility] [place] [address] * Vitamin B12 (06/28/2024 8:20 AM CDT) Vitamin B12 396 230 - 1,250 pg/mL Blood 06/28/2024 8:20 AM CDT 06/28/2024 10:45 AM CDT us Christina Gambino MD LAB BLOOD ORDERABLES Martha nessa Result ILANA [facility] [place] [address] * Pap with reflex to High Risk HPV (03/12/2022 1:46 PM CENTRAL SUPPLY TECHNICIAN) Thin prep (Pap test) 03/12/2022 1:46 PM CENTRAL SUPPLY TECHNICIAN 03/12/2022 3:29 PM CENTRAL SUPPLY TECHNICIAN Narrative PATHOLOGY [facility] - 03/23/2022 5:00 PM CENTRAL SUPPLY TECHNICIAN EPIC results best viewed via link to PDF [facility] Bridget Aguilar Laboratory [place] [address] Note to Patients: This report may contain [...] Gender: F : 1995 (Age: 26) Address: [address] [place] [address] Hospital #: [id number] Service: UNKNOWN Location: Patient Type: [facility] SPECIMEN Taken: 03/12/2022 Received: 03/12/2022 Accessioned: 03/12/2022 Reported: 03/23/2022 Physician(s): Jacqueline Lim M.D. FINAL INTERPRETATION SOURCE OF SPECIMEN: Liquid based Thin Prep pap with Reflex HPV STATEMENT OF ADEQUACY: - Satisfactory for evaluation - Endocervical cells/transformation zone sample present GENERAL CATEGORY: - Negative for squamous intraepithelial lesion or malignancy lwl/03/23/2022 17:00 Lance Ramirez MAG RENE(ASCP)PA Report Electronically Reviewed and Signed Out By Lance Ramirez MAG RENE(ASCP)POOJA 03/23/2022 17:00:43 Cervicovaginal Cytology (Pap Test) Disclaimer: The Pap test is a screening test used to detect cervical cancer and its precursors; it is not a diagnostic procedure. False negative and false positive results do occur. Pap test results should be interpreted in the context of pertinent clinical information and biopsy results as indicated. [facility] Clinical Laboratory Improvement Amendments (CLIA) mandate that cytologic and histologic results be correlated for laboratory corporate quality manager & improvement standards. FOR ALL [...] determined by the Surgical Pathology Department at [facility] as part of an ongoing quality control checker program and in compliance with federally mandated [...] determined by the Surgical Pathology Department of [facility]. It has not been cleared or approved by the U. S. Food and Drug Administration. Jacqueline Lim LOADING MANAGER LAB CYTOLOGY ORDERABLES Fi nal Result PATHOLOGY [facility] 3rd Floor [place], [place] [phone] * Hepatitis C antibody (07/11/2021 9:00 AM CDT) Hep C Ab Nonreactive Nonreactive ILANA [facility] Comment:Antibodies to HCV no t detected. Does NOT exclude the possibility of recent exposure to HCV. Blood 07/11/2021 9:00 AM CDT 07/11/2021 9:55 AM CDT us Noy Ball MD LAB MICROBIOLOGY - GENERA L ORDERABLES Edited Result - Final [facility] [place] [address] from Last 3 Months or Most Recently Relevant to Health Maintenance Insurance [facility] CHOICE PLUS [facility] H[facility]/PPO Address: [address] [address] [place] [address] [facility] HEALTH [facility] [employer] [facility] H[facility]/PPO Address: [address] [address] [place] [address] [facility] [employer] ACCESS CHOICE [facility] EM[employer]OYEES [facility] H[facility]/PPO Address: [facility] [address] [place] [address] [facility] EM[employer]ES [facility] H[facility]/PPO Address: [address] [address] [place] [address] Advance Directives For more information, please contact: [phone] * Full Code (Latest Code Status on [...] 7:56 AM 09/04/2019 8:01 AM Care Teams Child Care Center Administrator Relationship Specialty Start Date End Date Valeria Espana MD [address] [address] PCP - General Internal Medicine 08/13/20
--- OUTSIDE RECORDS SUMMARY | 2024-07-31 08:20 | XMS_ITS | Clinical Summary ---
Author Organization [facility] Address [address] [place] [address] Care Team Providers Care Velvet Weaver Name Role Phone Valeria Espana Primary Care Provider [phone] Source Comments [facility],non-owned Affiliates and Associated Physician Practices is amultiple site organization consisting of ambulatory clinics and hospital sitesin [place], [place], [place] and [place]. This disclosure is being madepursuant to the Care Everywhere program and may not contain all information available regarding this patient. Last updated 17.[facility] [employer] Allergies No known active allergies Medications * Be aware that medications may not be up to date on this document. Alwaysverify current medications with the patient. Multiple Vitamins-Minerals (MULTIVITAMIN & MINERAL PO) Take 1 tablet by mouth once daily Active IRON PO Take 1 tablet by mouth once daily Active Cyanocobalamin (VITAMIN B12 SL) Dissolve 1 tablet under the tongue once daily Active FLUoxetine (PROZAC) 20 MG capsule Take 1 capsule by mouth once daily 90 capsule 1 8 Active Additional Information Patient not taking.Reported on 03/20/2018 propranolol (INDERAL) 10 MG tabletIndications :Chronic migraine 1 tid x 1 week, then 2 tid. 180 tablet 1 8 Active acetaZOLAMIDE ER 12hr (DIAMOX SEQUEL) 500 MG capsule Take 1 capsule by mouth 2 times daily 60 capsule 1 8 Active amphetamine-dextr oamphetamine (ADDERALL) 10 MG tabletIndications :Attention deficit hyperactivity disorder (ADHD), unspecified ADHD type Take 1 tablet by mouth every morning 30 tablet 8 Active Additional Information Patient not taking.Reported on 03/20/2018 Lisdexamfetamine Dimesylate (VYVANSE PO) Take 50 mg by mouth once daily Active Escitalopram Oxalate (LEXAPRO PO) Active Active Problems Problem Noted Date Diagnosed Date Acute non-recurrent maxillary sinusitis 06/29/19 22 Attention deficit hyperactivity disorder (ADHD) 08/17/2017 Depression 08/17/2017 history of gastric sleeve 08/17/2017 Pseudotumor cerebri 04/08/2017 Benign essential tremor 04/08/2017 Family History Medical History Relation Name Comments CAD (Coronary Artery Disease) Father Diabetes - Type 2 Father Hypertension Father Diabetes - Type 2 Maternal Grandfather Diabetes - Type 2 Maternal Grandmother Arthritis - Rheumatoid Mother Hypertension Mother Diabetes - Type 1 Paternal Grandmother Relation Name Status Comments Father Alive Maternal Grandfather Alive Maternal Grandmother Alive Mother Alive Paternal Grandfather Alive Paternal Grandmother Alive Sister 1 Alive Sister 2 Alive Social History Tobacco Use Types Packs/Day Years Used Date Smoking Tobacco: Never Smokeless Tobacco: Never Tobacco Cessation:Counseling Given: No Alcohol Use Standard Drinks/Week Comments Yes 0 (1 standard drink = 0.6 oz pur e alcohol) rare Comments No Sex and Gender Information Value Date Recorded Sex Assigned at Not on file Legal Sex Female 5:44 AM DELIVERY REPRESENTATIVE Gender Identity Not on file Sexual Orientation Not on file 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 Not on file Not on file Last Filed Vital Signs Vital Sign Reading Time Taken Comments Blood Pressure 111/65 06/28/2021 10:25 AM CDT Pulse 90 06/28/2021 10:25 AM CDT Temperature 36.8 C (98.2 F) 06/28/2021 10:25 AM CDT Respiratory Rate 18 06/28/2021 10:25 AM CDT Oxygen Saturation 99% 06/28/2021 10:25 AM CDT Inhaled Oxygen Concentration - - Weight 99.8 kg (220 lb) 06/28/2021 10:25 AM CDT Height 165.1 cm (5' 5) 06/28/2021 10:25 AM CDT Body Mass Index 36.61 06/28/2021 10:25 AM CDT Plan of Treatment Health Maintenance Due Date Last Done Comments HIV SCREENING 2008 HEPATITIS C SCREENING 08/24/2011 DTAP/TDAP/TD VACCINES (1 - Tdap) 2012 HEPATITIS B VACCINE (1 of 3 - 19+ 3-dose series) 2012 COVID-19 VACCINE (3 - 2023- season) 2023 03/28/2020, 03/07/2020 DEPRESSION SCREENING 03/01/2024 INFLUENZA VACCINE (Season Ended) 2024 12/17/2020, 11/15/2017 (Done Outside Per Patient), 12/10/2016, Additional history exists ZOSTER VACCINE (1 of 2) 08/29/2043 HIB VACCINE Aged Out No longer eligi ble based on patient's age to complete this topic HPV VACCINE Aged Out No longer eligi ble based on patient's age to complete this topic MENINGOCOCCAL (Group B) VACCINE SHARED DECISION-MAKING Aged Out No longer eligible based on patient's age to complete this topic MENINGOCOCCAL GROUPS A/C/Y/W VACCINE Aged Out No longer eligible based on patient's age to complete this topic PNEUMOCOCCAL VACCINE Aged Out No long er eligible based on patient's age to complete this topic Insurance Care Teams Velvet Weaver Relationship Specialty Start Date End Date Valeria Espana [address] [address] PCP - General Hospitalist 06/28/21
--- OUTSIDE RECORDS SUMMARY | 2024-07-31 08:20 | XMS_ITS | Encounter Summary ---
Author Organization [facility] Address [address] [place] [address] Phone Care Team Providers Care Hypoid Gear Tester Name Role Phone Valeria Espana MD Primary Care Provider [phone] Encounter Details Date Type Department Care Team (Late st Contact Info) Description 06/28/2024 Results Follow-Up [facility] Hematology [address] [place] [address] Christina Akins MD [address] [place] [address] Ferritin, Iron profile w/ IBC, CBC with auto differential, Additional followed-up results: 2 Social History Tobacco Use Types Packs/Day Years Used Date Smoking Tobacco: Never Smokeless Tobacco: Never Alcohol Use Standard Drinks/Week Comments Yes 0 [...] 01/26/2022 How often do you attend chur ch or holiness services? Never 01/26/2022 Do you belong to any clubs o r organizations such as sikhism groups, unions, fraternal or athletic groups, or [...] place to sleep or slept in a chcf (including now)? No 01/26/2022 [place] Depression Scale Answer Date Recorded [place] Depression Scale Total 1 03/12/2022 The thought of harming myself has occurred to me . 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
[2024-07-31 08:54] LABS: EDSTREPNEGPOS1 Negative (Negative)
--- NOTE | 2024-07-31 09:04 | ED_ITS ---
HPI - URI/Sore Throat General Chief Complaint: Upper Respiratory Infection Stated Complaint: Sore Throat Time Seen by Provider: 07/31/24 08:30 Source: patient and RN notes reviewed Mode of arrival: ambulatory Limitations: no limitations History of Present Illness HPI Narrative: 28-year-old female presents Express Care with son kojo a sore throat for 2 days. Mother states her and her son were exposed to strep throat from her mother who tested positive for strep. Mother states they are frequently with her. Patient reports that is painful to swallow post tolerated food and water without issues. Patient denies any drooling, breathing problems, fevers, or any upper respiratory symptoms. Patient denies any significant past medical history. Related Data Home Medications ?Medication ?Instructions ?Recorded ?Confirmed ?Last Taken ?Type semaglutide (weight loss) 1.7 1.7 mg subcut WEEKLY 12/21/22 12/21/22 Unknown History mg/0.75 mL subcutaneous pen injector (Wegovy) Allergies Allergy/AdvReac Type Severity Reaction Status Date / Time No Known Allergies Allergy Verified 12/21/22 18:35 Review of Systems Review of Systems: CONSTITUTIONAL: Denies fever, chills, body aches, or sweats. EYES: Denies visual changes, redness, or discharge. ENT: Negative for rhinorrhea, congestion, or otalgia. Positive for sore throat. CARDIOVASCULAR: Denies chest pain, palpitations, or edema. RESPIRATORY: Negative for cough and dyspnea. GASTROINTESTINAL: Denies abdominal pain, nausea, vomiting, or diarrhea. GENITOURINARY: Denies dysuria or hematuria. SKIN: Denies rash or itching. MUSCULOSKELETAL: Denies back pain, joint pain, or myalgia. NEUROLOGIC: Denies headache, numbness, or weakness. PSYCHIATRIC: Denies anxiety or depression. All other systems reviewed are negative, except as documented in HPI. [facility] Past Medical History Medical History (Updated 07/31/24 @ 08:48 by Jeevan Mccarthy APRN) Back pain Comments At the time of my signature, I reviewed and agree with the nursing past medical, surgical, social, and family history. There is no relevant family history p ertinent to the patient complaint. Exam Narrative: GENERAL: This is a well-nourished, well-developed adult, in no apparent distress. They are non ill-appearing, nontoxic appearing. HEAD: normocephalic, atraumatic. EYES: Sclera clear/white. Vision is grossly intact. Conjunctiva normal bilaterally. Extraocular movements intact. EARS: External ears normal, auditory canals clear and without drainage, TMs without erythema or perforation. Hearing grossly intact. NOSE: External nose normal with no obvious nasal discharge, nasal turbinates without redness or swelling, no rhinorrhea. THROAT: Mucous membranes moist, posterior pharynx erythematous without exudate. Uvula is midline. NECK: Neck supple, non-tender without lymphadenopathy, masses or thyromegaly. CARDIOVASCULAR: Regular rate and rhythm without murmurs, gallops, or rubs. RESPIRATORY: Clear to auscultation. Breath sounds equal bilaterally. No wheezes, rales, or rhonchi. SKIN: warm, Dry, intact with no suspicious lesions or rash, good texture and turgor. NEURO: awake, alert, and oriented to person, place and time. There were no obvio us focal neurologic abnormalities. EXTREMITIES: No joint tenderness, effusion, or edema noted. BACK: Nontender without deformity. Course Course Emergency Course: Portions of this record may have been created with voice recognition software Level of Care: Express Care Visit Vital Signs Vital signs: Vital Signs Temperature 97.7 F 07/31/24 08:20 Pulse Rate 92 07/31/24 08:20 Respiratory Rate 14 07/31/24 08:20 Blood Pressure 98/61 L 07/31/24 08:20 Pulse Oximetry 100 07/31/24 08:20 Oxygen Delivery Room Air 07/31/24 08:20 Temperature 97.7 F 07/31/24 08:20 Pulse Rate 92 07/31/24 08:20 Respiratory Rate 14 07/31/24 08:20 Blood Pressure 98/61 L 07/31/24 08:20 Pulse Oximetry 100 07/31/24 08:20 Oxygen Delivery Room Air 07/31/24 08:20 MDM - URI/Sore Throat MDM Narrative Medical decision making narrative: Rapid strep negative. Throat culture pending. Patient's child is positive for strep here today in clinic, given patient's recent exposure I will go ahead and treat her empirically with amoxicillin for strep pharyngitis. Discussed physical exam findings. Advised supportive measures and signs/symptoms to go to the ER. Pt is appropriate for outpt treatment and f/u. Differential Diagnosis Differential diagnosis: Likely upper respiratory infection, viral infection and pharyngitis (Strep, viral) Lab Data Attestation: I reviewed the patient's lab results. Labs: Lab Results 07/31/24 Range/Units 08:28 POC Grp A Strep Screen Negative (Negative) Discharge Plan Discharge Clinical Impression: Pharyngitis Qualifiers: Pharyngitis/tonsillitis etiology: unspecified etiology Qualified Code(s): J02.9 - Acute pharyngitis, unspecified Patient Disposition: Home Condition: Stable Instructions: Antibiotic Form, Strep Throat (ED) Additional Instructions: Your rapid strep swab was negative today at [facility]. You will be notified in a few days if the culture comes back positive for strep. Since you have been exposed to strep throat we will go ahead prescribe the antibiotics. Take the amoxicillin as directed. You will be contagious for 24 hours after starting the medication. ?After 24 hours on antibiotics throw tooth brush away and start using a new one. Wash your sheets and cup/water bottle that is used daily. Do not share drinks. Take Tylenol or Ibuprofen for pain or fever, if able. Take Tylenol or ibuprofen for fever or pain. Rest and stay hydrated. Follow up with your PCP in 3-5 days if symptoms are not improving. Go to the ER immediately if you develop difficulty breathing or swallowing Patient Language: Yi Prescriptions: New amoxicillin 500 mg tablet 500 mg PO Q12H 10 Days Qty: 20 0RF No Action Wegovy 1.7 mg/0.75 mL pen injector 1.7 mg SUBCUT WEEKLY albuterol sulfate 90 mcg/actuation HFA aerosol inhaler 2 puff inhalation QID PRN (Reason: shortness of breath or wheezing) Qty: 8.5 0RF amoxicillin-pot clavulanate 875-125 mg tablet 1 tablet PO Q12H 10 Days Qty: 20 0RF Follow-up/Referrals: PHYSICIAN NOT ON STAFF,NONSTAFF [Primary Care Provider] - Time of Disposition: 08:48
== END 2024-07-31 09:00 | disposition home or self-care (01) ==
DX: J02.9 Acute pharyngitis, unspecified (principal)
CPT/HCPCS: 87081; 87880; 99213; G0463